=== PATIENT | female | born 1970 | race Two or more races ===

== ENCOUNTER 2022-09-03 06:34 | Day surgery (SDC) | payer OTHER | END 2022-09-03 13:05 | disposition home or self-care (01) | LOC: AMB-ENDOS 06:34 | PROVIDERS: ATTEND Colon & Rectal Surgery | DX: D12.2 Benign neoplasm of ascending colon (principal); R19.4 Change in bowel habit; K64.8 Other hemorrhoids; Z80.0 Family history of malignant neoplasm of digestive organs; Z20.822 Contact with and (suspected) exposure to COVID-19 ==